=== PATIENT | female | born 1965 | race Caucasian/White ===

== ENCOUNTER 2024-01-29 14:35 | Emergency (ER) | payer OTHER ==
[2024-01-29 14:52] VITALS: BP 139/87; PULSE 88; RESP 18; TEMP 98.5; BMI 34.7
[2024-01-29] MEDS: ACETAMINOPHEN 500 MG TABLET (FP) PO ONE (15:00)
== END 2024-01-29 16:15 | disposition home or self-care (01) ==
LOC: FER 14:35
DX: M25.562 Pain in left knee (principal); M79.18 Myalgia, other site
CPT/HCPCS: 73562-TC-LT-FY; 99283-25

== ENCOUNTER 2024-09-19 19:57 | Emergency (ER) | payer OTHER ==
[2024-09-19 20:13] VITALS: BP 126/78; PULSE 85; RESP 16; TEMP 98; BMI 35.9
== END 2024-09-19 21:54 | disposition home or self-care (01) ==
LOC: FER 19:57
DX: S06.0X0A Concussion without loss of consciousness, initial encounter (principal); W01.198A Fall on same level from slipping, tripping and stumbling with subsequent striking against other object, initial encounter
CPT/HCPCS: 70450-TC; 99284-25

== ENCOUNTER 2024-09-29 21:33 | Emergency (ER) | payer OTHER ==
[2024-09-29 21:55] VITALS: BP 140/94; PULSE 103; RESP 18; TEMP 98.1; BMI 36.9
[2024-09-29] MEDS ORDERED: SULFAMETHOXAZOLE/TRIMETHOPRIM 800MG/160MG D.S. TABLET ONE (22:15)
[2024-09-29] MEDS ORDERED: IBUPROFEN 600 MG TABLET (FP) PO ONE (22:15)
[2024-09-29] MEDS ORDERED: PHENAZOPYRIDINE HCL 100 MG TABLET (FP) ONE (22:15)
[2024-09-29] MEDS: IBUPROFEN 600 MG TABLET (FP) PO ONE (22:19)
[2024-09-29] MEDS: PHENAZOPYRIDINE HCL 100 MG TABLET (FP) PO ONE (22:19)
[2024-09-29] MEDS: SULFAMETHOXAZOLE/TRIMETHOPRIM 800MG/160MG D.S. TABLET PO ONE ×2 (22:19)
[2024-09-29 23:07] LABS: EPITHELIAL CELLS 0-5 /hpf
== END 2024-09-29 22:38 | disposition home or self-care (01) ==
LOC: FER 21:33
DX: N30.00 Acute cystitis without hematuria (principal); R30.0 Dysuria; R50.9 Fever, unspecified
CPT/HCPCS: 81003; 81015; 87086; 87186; 99283-25